=== PATIENT | female | born 2000 | race Caucasian/White ===

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

== ENCOUNTER → 2023-05-21 | Outpatient (CLI) | payer MEDICAID ==
[~2023-05-21] MED LIST changes: +MACROBID100 M1 PO; +TYLENOL325 M1 PO
== END | disposition home or self-care (01) ==
LOC: CARD 10:00
PROVIDERS: ATTEND Nurse Practitioner
DX: R00.2 Palpitations (principal)

== ENCOUNTER 2024-02-06 14:42 | Emergency (ER) | payer SELFPAY ==
[~2024-02-06] VITALS: Ht 170.2 cm; Wt 81.6 kg
[2024-02-06] MEDS ORDERED: SODIUM CHLORIDE 0.9% 1,000 ML IV ONE (15:20)
[2024-02-06] MEDS ORDERED: Ketorolac Tromethamine 30 MG/ML VIAL IV ONE (15:20)
[2024-02-06] MEDS ORDERED: Metoclopramide Hydrochloride 10 MG/2 ML AMP IV ONE (15:20)
[2024-02-06] MEDS ORDERED: diphenhydrAMINE hydrochloride 50 MG/ML VIAL IV ONE (15:20)
[2024-02-06 15:55] LABS: BASO % 0.6 % (0.0-1.0); EOS # 0.1 10*3/uL (0.0-0.4); EOS % 2.2 % (1.0-4.0); HEMATOCRIT 40.6 % (37.0-47.0); LYMPH # 1.6 10*3/uL (1.3-4.4); LYMPH % 24.8 % (27.0-41.0); MEAN CELL VOLUME 92.7 fl (81.0-99.0); MEAN CORPUSCULAR HGB 29.9 pg (27.0-31.0); MEAN CORPUSCULAR HGB CONC 32.3 g/dl (33.0-37.0); MEAN PLATELET VOLUME 9.6 fl (9.6-12.3); MONO # 0.4 10*3/uL (0.1-1.0); MONO % 5.8 % (3.0-9.0); NEUT # 4.3 10*3/uL (2.3-7.9); NEUT % 66.4 % (47.0-73.0); PLATELET COUNT AUTOMATED 319 10*3/uL (130-400); RED BLOOD COUNT 4.38 10*6/uL (4.10-5.10); RED CELL DISTRI WIDTH 12.3 % (0-14.5); WHITE BLOOD COUNT 6.4 10*3/uL (4.8-10.8)
[2024-02-06 16:15] LABS: ALKALINE PHOSPHATASE 57 U/L (46-116); BUN 7 mg/dl (9-23); CHLORIDE 106 mmol/L (98-107); POTASSIUM 4.1 mmol/L (3.4-5.1); SGPT/ALT 8 U/L (5-49); TOTAL PROTEIN 7.9 gm/dL (6.0-8.0)
[2024-02-06] MEDS ORDERED: AMOX-CLAV 875-1 EACH PO (16:50)
[2024-02-06] MEDS ORDERED: Amoxicillin/Clavulanate Pota 875 MG TAB PO ONE (16:55)
== END 2024-02-06 17:13 | disposition home or self-care (01) ==
LOC: ED 14:42
PROVIDERS: Nurse Practitioner Family
DX: G43.909 Migraine, unspecified, not intractable, without status migrainosus (principal); J32.9 Chronic sinusitis, unspecified; H53.8 Other visual disturbances; K21.9 Gastro-esophageal reflux disease without esophagitis; Z88.6 Allergy status to analgesic agent

== ENCOUNTER 2024-08-25 09:50 | Emergency (ER) | payer MEDICAID ==
[~2024-08-25] VITALS: Ht 170.1 cm; Wt 81.6 kg
[~2024-08-25 09:50] MED LIST changes: +AMOX-CLAV 875-1 EACH PO
[2024-08-25] MEDS ORDERED: SODIUM CHLORIDE 0.9% 1,000 ML IV ONE (10:00)
[2024-08-25] MEDS ORDERED: Metoclopramide Hydrochloride 10 MG/2 ML VIAL IV ONE (10:00)
[2024-08-25] MEDS ORDERED: diphenhydrAMINE hydrochloride 50 MG/ML VIAL IV ONE (10:00)
[2024-08-25] MEDS ORDERED: ACETAMINOPHEN 325 MG TAB PO ONE (10:05)
[2024-08-25 10:29] LABS: BASO # 0.1 10*3/uL (0.0-0.1); EOS # 0.2 10*3/uL (0.0-0.4); EOS % 2.3 % (1.0-4.0); HEMATOCRIT 39.6 % (37.0-47.0); MEAN CELL VOLUME 91.9 fl (81.0-99.0); MEAN CORPUSCULAR HGB 29.9 pg (27.0-31.0); MEAN CORPUSCULAR HGB CONC 32.6 g/dl (33.0-37.0); MEAN PLATELET VOLUME 9.4 fl (9.6-12.3); MONO # 0.4 10*3/uL (0.1-1.0); MONO % 5.1 % (3.0-9.0); NEUT # 4.4 10*3/uL (2.3-7.9); NEUT % 62.6 % (47.0-73.0); PLATELET COUNT AUTOMATED 294 10*3/uL (130-400); RED BLOOD COUNT 4.31 10*6/uL (4.10-5.10)
[2024-08-25 10:43] LABS: BUN 9 mg/dl (9-23); CHLORIDE 107 mmol/L (98-107); POTASSIUM 3.8 mmol/L (3.4-5.1)
[2024-08-25] MEDS ORDERED: TYLENOL EXTRA500 M2 PO (10:50)
[2024-08-25] MEDS ORDERED: REGLAN10 M1 PO (10:50)
== END 2024-08-25 11:00 | disposition home or self-care (01) ==
LOC: ED 09:50
PROVIDERS: Emergency Medicine
DX: R51.9 Headache, unspecified (principal); Z88.8 Allergy status to other drugs, medicaments and biological substances